=== PATIENT | male | born 1935 | race Caucasian/White ===

== ENCOUNTER → 2016-05-17 | Outpatient (CLI) | payer MEDICARE ==
[2016-05-17 13:16] LABS: INTERNATIONAL NORMALIZED RATIO 2.3 RATIO; PROTHROMBIN TIME - PATIENT 26.2 SEC (9.8-11.6)
== END ==
LOC: PLAB 12:01
DX: I48.92 Unspecified atrial flutter (principal)
CPT/HCPCS: 36415; 85610